=== PATIENT | female | born 1995 | race American Indian/Alaskan Native ===

== ENCOUNTER 2019-12-11 12:27 | Outpatient (CLI) | payer MEDICAID ==
[2019-12-11 13:38] VITALS: BP 106/66
[2019-12-11] MEDS ORDERED: LACTATED RINGERS 1,000 ML IV SCH (14:00)
== END 2019-12-11 15:15 | disposition home or self-care (01) ==
LOC: APU 12:27 → TRG 12:27
PROVIDERS: ATTEND Obstetrics & Gynecology
DX: O13.3 Gestational [pregnancy-induced] hypertension without significant proteinuria, third trimester (principal); Z3A.34 34 weeks gestation of pregnancy
CPT/HCPCS: 59025; 76815; 76819

== ENCOUNTER 2020-01-13 20:53 | Inpatient (IN) | payer MEDICAID ==
[2020-01-13] MEDS ORDERED: ePHEDrine SULFATE 50 MG/1 ML INJ IV PRN (20:57)
[2020-01-13] MEDS ORDERED: fentaNYL 100 MCG/2 ML INJ IV PRN (20:57)
[2020-01-13] MEDS ORDERED: LIDOCAINE (2%) 20 MG/1 ML VIAL 20 ML MDV INFILTRATI ONE (20:57)
[2020-01-13] MEDS ORDERED: AMPICILLIN/NS 2 GM/100 ML 2 GM/100 ML BAG IV ONE (20:57)
[2020-01-13] MEDS ORDERED: TERBUTALINE 1 MG/1 ML INJ SUB-Q PRN (20:57)
[2020-01-13] MEDS ORDERED: MINERAL OIL 30 ML ORAL LIQD PO PRN (20:57)
[2020-01-13] MEDS ORDERED: BUTORPHANOL 2 MG/1 ML INJ IV PRN (20:57)
[2020-01-13] MEDS ORDERED: OXYTOCIN DRIP 30 UNITS/500 ML BAG IV SCH (21:00)
--- NOTE | 2020-01-13 21:06 | History and Physical Report ---
History of Present Illness Date of examination: 01/13/20 Date of admission: 01/13/20 20:54 Chief complaint: Induction of labor secondary to cholestasis History of present illness: 24 yo, @ 39.0 wks, initiated care with [facility] [employer] at 21 wks gestation. Her has been complicated by late entry to [facility], cholestasis, +GBS status, abnormal PAP,severe anemia and LGA (93%tile). Pt presents to [facility] for scheduled IOL secondary to cholestasis. She reports positive FM. Denies any VB or LOF. Labs: A+, antibody negative; RPR negative; rubella immune; HBsAg negative; HIV negative; GC/Chlaymdia/Trich negative; Quad screen negative; 1 hr gtt - 68; GBS positive; Hgb A1c - 5.5%; uric acid - 3.8; bile acids - 12.3; AST - 22IU/L; ALT - 12IU/L Past History Past Medical History: other (Anemia) [employer]OMOTIONAL DEMONSTRATOR History: abnormal PAP smear (LGSIL) Social history: single, full code. denies: smoking, alcohol abuse, prescription drug abuse, IV drug use - Obstetrical History Expected Date of Delivery: 01/20/20 Actual Gestation: 39 Week(s) 0 Day(s) : 2 Para: 0 Hx # Term Pregnancies: 0 Number of Pregnancies: 0 Spontaneous Abortions: 1 Induced : 0 Number of Living Children: 0 Medications and Allergies Allergies Allergy/AdvReac Type Severity Reaction Status Date / Time No Known Allergies Allergy Unverified 12/11/19 13:34 Home Medications Medication Instructions Recorded Confirmed Last Taken Type Vit No.129/Iron/Folic 01/13/20 Unknown History [ One Daily Tablet] Active Meds: Active Medications Butorphanol Tartrate (Stadol) 2 mg IV Q2H PRN PRN Reason: Pain , Severe (7-10) Ephedrine Sulfate (Ephedrine Sulfate) 10 mg IV Q2M PRN PRN Reason: Hypotension Fentanyl (Sublimaze) 100 mcg IV Q2H PRN PRN Reason: Pain,Severe (7-10) LABOR PAIN Lactated Ringer's (Lactated Ringers) 1,000 mls @ 125 mls/hr IV DIRECT DAMASO Oxytocin/Sodium Chloride (Pitocin/Ns 30 Unit/500ml) 30 units in 500 mls @ 40 mls/hr IV TITR DAMASO; Protocol Ampicillin Sodium (Ampicillin/Ns 2 Gm/100 Ml) 2 gm in 100 mls @ 100 mls/hr IV ONCE ONE; Protocol Stop: 01/13/20 21:56 Ampicillin Sodium (Ampicillin/Ns 1 Gm/50 Ml) 1 gm in 50 mls @ 100 mls/hr IV Q4HR DAMASO; Protocol Lidocaine (Xylocaine 2%) 20 ml INFILTRATI ONCE ONE Stop: 01/13/20 20:58 Mineral Oil (Mineral Oil) 30 ml PO QHS PRN PRN Reason: Constipation Terbutaline Sulfate (Brethine) 0.25 mg SUB-Q ONCE PRN PRN Reason: Hyperstimulation/Hypertonicity Review of Systems All systems: negative - Physical Exam Breasts: Positive: normal Cardiovascular: Regular rate Lungs: Positive: Normal air movement Abdomen: Positive: other Vagina: Positive: normal moisture Uterus: Positive: enlarged (S>D) Extremities: Positive: edema - Obstetrical FHR: category 1 Uterine Contraction Monitor Mode: External Cervical Dilatation: 0.5 (difficult to completely assess d/t pt clamping legs) Cervical Effacement Percentage: 50 station: -3 Uterine Contraction Pattern: Irregular Uterine Tone Measurement Phase: Resting Uterine Contraction Intensity: Mild Results All other labs normal. Assessment and Plan - Patient Problems (1) Encounter for induction of labor Current Visit: Yes Status: Acute Plan to address problem: Admit to L & D Cervidil x 12 hrs as tolerated Pain meds as desired per orders Anticipate (2) Cholestasis during in third trimester Current Visit: Yes Status: Acute (3) Maternal obesity affecting , antepartum Current Visit: Yes Status: Acute (4) Positive GBS test Current Visit: Yes Status: Acute Plan to address problem: Initiate GBS protocol
[2020-01-13] MEDS ORDERED: DINOPROSTONE 10 MG VAG SUPP VG ONE (22:21)
[2020-01-13 22:34] LABS: Hematocrit 37.8 % (30.3-42.9); Hemoglobin 12.5 gm/dl (10.1-14.3); Mean Corpuscular HGB Conc 33 % (30-34); Mean Corpuscular Volume 83 fl (79-97); Platelet Count 179 K/mm3 (140-440); Red Blood Count 4.58 M/mm3 (3.65-5.03)
[2020-01-13 22:37] LABS: Red Cell Distribution Width 21.2 % (13.2-15.2)
[2020-01-13] MEDS: LACTATED RINGERS 1,000 ML IV SCH (23:08)
[2020-01-14] MEDS ORDERED: AMPICILLIN/NS 1 GM/50 ML 1 GM/50 ML BAG IV SCH ×2 (01:00→06:45)
[2020-01-14] MEDS ORDERED: AMPICILLIN/NS 2 GM/100 ML 2 GM/100 ML BAG IV ONE (02:45)
[2020-01-14] MEDS: LACTATED RINGERS 1,000 ML IV SCH ×2 (02:53→21:00)
[2020-01-14] MEDS ORDERED: miSOPROStol 25 MCG TAB ONE (10:35)
--- NOTE | 2020-01-14 10:52 | Progress Note ---
Assessment and Plan A: IUP @ 391/7 Weeks Category I Tracing Cholestasis of Pruritic Rash GBS Positive P: Cervidil Induction Vistaril 50mg IM q 6 hours PRN Hold GBS Prophylaxis until active labor Subjective - Subjective Date of service: 01/14/20 Patient reports: movement normal, other (itching rash) Objective - Vital Signs Vital Signs: Vital Signs - 12hr 01/14/20 01/14/20 01/14/20 01:45 04:18 05:45 Temperature 98.3 F 98.5 F Pulse Rate 86 Blood Pressure 116/61 - Exam Breasts: normal Cardiovascular: Regular rate Lungs: Clear to auscultation, Normal air movement Abdomen: Present: normal appearance, soft Uterus: Present: normal, firm, fundal height above umbilicus FHR: category 1 Uterine Contraction Monitor Mode: External Cervical Dilatation: 0.5 (Vtx; Intact) Cervical Effacement Percentage: 10 station: -4 Uterine Contraction Pattern: Absent Uterine Tone Measurement Phase: Resting Extremities: other (Red raised rash over legs, thighs, arms, and back) - Labs Labs: Abnormal Labs 01/13/20 22:00 MCH 27 L RDW 21.2 H Laboratory Results - last 24 hr 01/13/20 01/13/20 22:00 22:00 WBC 7.3 RBC 4.58 Hgb 12.5 Hct 37.8 MCV 83 MCH 27 L MCHC 33 RDW 21.2 H Plt Count 179 Blood Type A POSITIVE Antibody Screen Negative
[2020-01-14] MEDS ORDERED: DINOPROSTONE 10 MG VAG SUPP VG ONE (11:00)
[2020-01-14] MEDS ORDERED: hydrOXYzine HCL 100 MG/2 ML INJ IM PRN (11:00)
--- NOTE | 2020-01-14 21:51 | Progress Note ---
Assessment and Plan A: IUP @ 391/7 Weeks Category I Tracing Cholestasis of GBS Positive P: Pull Cervidil at 2300 Start Low Dose Pitocin Hold GBS Prophylaxis until active labor Subjective - Subjective Date of service: 01/14/20 Patient reports: movement normal, contractions (very mild) Objective - Vital Signs Vital Signs: Vital Signs - 12hr 01/14/20 01/14/20 01/14/20 12:21 12:22 12:26 Temperature 97.7 F Pulse Rate 86 81 95 H Respiratory 20 Rate Blood Pressure 109/59 O2 Sat by Pulse 95 94 95 Oximetry 01/14/20 01/14/20 01/14/20 12:31 12:36 12:37 Temperature Pulse Rate 89 83 84 Respiratory Rate Blood Pressure O2 Sat by Pulse 96 95 94 Oximetry 01/14/20 01/14/20 01/14/20 12:41 12:44 12:46 Temperature Pulse Rate 80 83 81 Respiratory Rate Blood Pressure O2 Sat by Pulse 96 94 97 Oximetry 01/14/20 01/14/20 01/14/20 12:50 12:51 12:56 Temperature Pulse Rate 78 83 88 Respiratory Rate Blood Pressure O2 Sat by Pulse 94 95 97 Oximetry 01/14/20 01/14/20 01/14/20 13:01 13:03 13:06 Temperature Pulse Rate 84 81 86 Respiratory Rate Blood Pressure O2 Sat by Pulse 99 94 96 Oximetry 01/14/20 01/14/20 01/14/20 13:21 13:24 13:26 Temperature Pulse Rate 72 84 78 Respiratory Rate Blood Pressure 113/59 O2 Sat by Pulse 97 96 Oximetry 01/14/20 01/14/20 01/14/20 13:31 13:36 13:41 Temperature Pulse Rate 81 80 86 Respiratory Rate Blood Pressure O2 Sat by Pulse 96 97 100 Oximetry 01/14/20 01/14/20 01/14/20 13:45 13:49 13:54 Temperature Pulse Rate 81 112 H 32 L Respiratory Rate Blood Pressure O2 Sat by Pulse 94 76 L 79 L Oximetry 01/14/20 01/14/20 01/14/20 13:57 13:59 14:04 Temperature Pulse Rate 83 77 Respiratory Rate Blood Pressure O2 Sat by Pulse 79 L 81 L 80 L Oximetry 01/14/20 01/14/20 01/14/20 14:07 14:09 14:13 Temperature Pulse Rate 43 L Respiratory Rate Blood Pressure O2 Sat by Pulse 81 L 80 L 78 L Oximetry 01/14/20 01/14/20 01/14/20 14:18 14:21 14:23 Temperature Pulse Rate 113 H 116 H Respiratory Rate Blood Pressure O2 Sat by Pulse 73 L 89 84 Oximetry 01/14/20 01/14/20 01/14/20 14:25 14:26 14:31 Temperature Pulse Rate 94 H 42 L 82 Respiratory Rate Blood Pressure 110/65 O2 Sat by Pulse 76 L 96 Oximetry 01/14/20 01/14/20 01/14/20 14:36 14:41 14:46 Temperature Pulse Rate 86 95 H 81 Respiratory Rate Blood Pressure O2 Sat by Pulse 97 97 97 Oximetry 01/14/20 01/14/20 01/14/20 14:51 14:56 15:01 Temperature Pulse Rate 84 93 H 95 H Respiratory Rate Blood Pressure O2 Sat by Pulse 98 98 97 Oximetry 01/14/20 01/14/20 01/14/20 15:06 15:11 15:16 Temperature Pulse Rate 94 H 90 84 Respiratory Rate Blood Pressure O2 Sat by Pulse 96 97 98 Oximetry 01/14/20 01/14/20 01/14/20 15:21 15:25 15:26 Temperature Pulse Rate 82 85 86 Respiratory Rate Blood Pressure 104/51 O2 Sat by Pulse 98 97 Oximetry 01/14/20 01/14/20 01/14/20 15:31 15:36 15:41 Temperature Pulse Rate 91 H 82 90 Respiratory Rate Blood Pressure O2 Sat by Pulse 96 97 96 Oximetry 01/14/20 01/14/20 01/14/20 15:46 15:48 15:51 Temperature Pulse Rate 86 93 H Respiratory Rate Blood Pressure O2 Sat by Pulse 98 76 L 96 Oximetry 01/14/20 01/14/20 01/14/20 15:57 16:02 16:07 Temperature Pulse Rate 98 H Respiratory Rate Blood Pressure O2 Sat by Pulse 91 76 L 78 L Oximetry 01/14/20 01/14/20 01/14/20 16:20 16:26 16:31 Temperature Pulse Rate 43 L Respiratory Rate Blood Pressure O2 Sat by Pulse 90 75 L 82 L Oximetry 01/14/20 01/14/20 01/14/20 16:36 16:44 16:50 Temperature Pulse Rate 153 H 67 Respiratory Rate Blood Pressure O2 Sat by Pulse 80 L 90 95 Oximetry 01/14/20 01/14/20 01/14/20 16:55 17:01 17:02 Temperature Pulse Rate 93 H 77 111 H Respiratory Rate Blood Pressure O2 Sat by Pulse 80 L 94 93 Oximetry 01/14/20 01/14/20 01/14/20 17:06 17:08 17:11 Temperature Pulse Rate 75 65 Respiratory Rate Blood Pressure O2 Sat by Pulse 86 90 94 Oximetry 01/14/20 01/14/20 01/14/20 17:13 17:16 17:32 Temperature Pulse Rate 69 29 L 124 H Respiratory Rate Blood Pressure O2 Sat by Pulse 97 66 L 85 Oximetry 01/14/20 01/14/20 01/14/20 19:13 19:24 20:25 Temperature Pulse Rate 100 H 94 H 88 Respiratory Rate Blood Pressure 140/56 115/57 107/55 O2 Sat by Pulse Oximetry 01/14/20 01/14/20 20:34 21:24 Temperature 98.1 F Pulse Rate 96 H Respiratory 18 Rate Blood Pressure 120/56 O2 Sat by Pulse Oximetry - Exam Breasts: normal Cardiovascular: Regular rate Lungs: Clear to auscultation, Normal air movement Abdomen: Present: normal appearance, soft, normal bowel sounds Uterus: Present: normal, firm, fundal height above umbilicus FHR: category 1 Uterine Contraction Monitor Mode: External Cervical Dilatation: 1 (Intact) Cervical Effacement Percentage: 20 station: -3 Uterine Contraction Pattern: Regular Uterine Tone Measurement Phase: Resting Uterine Contraction Intensity: Mild - Labs Labs: Abnormal Labs 01/13/20 22:00 MCH 27 L RDW 21.2 H Laboratory Results - last 24 hr 01/13/20 01/13/20 22:00 22:00 WBC 7.3 RBC 4.58 Hgb 12.5 Hct 37.8 MCV 83 MCH 27 L MCHC 33 RDW 21.2 H Plt Count 179 Blood Type A POSITIVE Antibody Screen Negative
[2020-01-15] MEDS: LACTATED RINGERS 1,000 ML IV SCH (05:50)
[2020-01-15 09:45] VITALS: BP 104/53
--- NOTE | 2020-01-15 09:45 | Progress Note ---
Assessment and Plan A: IUP@39.1 wks with cholestasis GBS pos p: Continue monitoring on Pitocin Start GBS prophylaxis when active labor Expectant Mtg Subjective - Subjective Date of service: 01/15/20 Principal diagnosis: IUP@ 39.1 wks with cholestasis Patient reports: movement normal, contractions (very mild) Objective - Vital Signs Vital Signs: Vital Signs - 12hr 01/15/20 01/15/20 01/15/20 00:00 01:17 04:48 Temperature 98.2 F 98.1 F Pulse Rate 85 Respiratory 18 17 Rate Blood Pressure 119/59 01/15/20 07:58 Temperature 98.1 F Pulse Rate Respiratory 20 Rate Blood Pressure - Exam Breasts: normal Abdomen: Present: normal appearance, soft Vulva: both: normal Uterus: Present: normal, other (gravid) FHR: auscultation normal Uterine Contraction Monitor Mode: External Cervical Dilatation: 1 Cervical Effacement Percentage: 30 station: -3 Uterine Contraction Frequency (min): irreg Uterine Contraction Pattern: Irregular Uterine Tone Measurement Phase: Resting Uterine Contraction Intensity: Mild Extremities: normal - Labs Labs: Abnormal Labs 01/13/20 22:00 MCH 27 L RDW 21.2 H
--- NOTE | 2020-01-15 10:06 | Progress Note ---
Subjective - Subjective Date of service: 01/15/20 Principal diagnosis: IUP@ 39.1 wks with cholestasis Interval history: IOL for cholestasis although labs are WNL and patient does not meet criteria for cholestasis declines cytotec Tachysystole with cervidil suspect LGA plan for BPP/PAULA/EFW and repeat labs If testing is WNL may consider sending patient home vs section given inability to ripen cervix and patient's declination of cytotoc. Pavel Molina MD Patient reports: movement normal, contractions (very mild) Objective - Vital Signs Vital Signs: Vital Signs - 12hr 01/15/20 01/15/20 01/15/20 00:00 01:17 04:48 Temperature 98.2 F 98.1 F Pulse Rate 85 Respiratory 18 17 Rate Blood Pressure 119/59 01/15/20 01/15/20 07:58 09:44 Temperature 98.1 F Pulse Rate 77 Respiratory 20 Rate Blood Pressure 104/53 - Labs Labs: Abnormal Labs 01/13/20 22:00 MCH 27 L RDW 21.2 H
--- NOTE | 2020-01-15 14:25 | Ultrasound Report ---
ULTRASOUND BIOPHYSICAL PROFILE INDICATION: Hx of cholestasis. COMPARISON: 12/11/2019 FINDINGS: breathing movement = 2 Gross body movement = 2 tone = 2 Qualitative amniotic fluid volume = 2 Total biophysical score = /8 heart rate is 146 beats per minute. IMPRESSION: biophysical profile = 10/10 OBSTETRIC ULTRASOUND INDICATION: Hx of cholestasis COMPARISON: 12/11/2019 TECHNIQUE: Transabdominal imaging was performed. FINDINGS: Single viable intrauterine is identified. lie: Cephalic. Heart rate: 149 bpm. measurements are as follows: Biparietal diameter 9.8 cm, 39 weeks 6 days Head circumference 35.3 cm, 41 weeks 1 day Abdominal circumference 32.6 cm, 41 weeks 4 days Femur length 7.5 cm, 38 weeks 2 days Sonographic gestational age is 40 weeks, 2 days. Amniotic fluid index is 9.1 cm, within normal limits. No placental abnormalities are seen. CONCLUSION: Single viable intrauterine currently in cephalic position. Amniotic fluid index is within n ormal limits. Signer Name: Eliezer Arnett MD Signed: 01/15/2020 2:20 PM Workstation Name: [email or web address]
[2020-01-15 14:38] LABS: Hematocrit 37.2 % (30.3-42.9); Hemoglobin 12.4 gm/dl (10.1-14.3); Mean Corpuscular HGB Conc 33 % (30-34); Mean Corpuscular Volume 82 fl (79-97); Platelet Count 169 K/mm3 (140-440); Red Blood Count 4.55 M/mm3 (3.65-5.03)
[2020-01-15 14:47] LABS: Red Cell Distribution Width 20.7 % (13.2-15.2)
[2020-01-15 14:57] LABS: Alanine Aminotransferase 14 units/L (7-56); Albumin 3.6 g/dL (3.9-5); Blood Urea Nitrogen 4 mg/dL (7-17); Calcium 9.4 mg/dL (8.4-10.2); Hemolysis Index 2
[2020-01-15 15:04] LABS: BUN/Creatinine Ratio 10
--- NOTE | 2020-01-15 16:36 | Event Note ---
Date: 01/15/20 Patient comfortable LAbs WNL Bile acids are a send out: awaiting on results 2-3 days. BPP/PAULA 10/10 I reviewed the options for delivery including continued cervical ripening and d/c to home. Pt ok to go home with labor and cholestasis precautions I explained she should fup with [facility] on Sunday01/19/2020 I explained that she needs another date for IOL between 40-41 weeks PRIOR to discharge. I explained that pt should return to l&D for LOF, VB, decreased FM or any untoward symptom. Maternal/ well being reassuring at discharge. Pavel Molina MD
--- NOTE | 2020-01-15 16:46 | Discharge Summary ---
Providers - Providers Date of Admission: 01/13/20 20:54 Date of discharge: 01/15/20 Attending physician: LILI DODGE Primary care physician: LILI DODGE Hospitalization Reason for admission: other (IOL For cholestasis) Discharge diagnosis: other (39+2/7 weeks, reassuring testing, remote from delivery. ) Disposition: DC-30 STILL A PATIENT Plan - Provider Discharge Summary Activity: routine Diet: routine Instructions: routine Additional instructions: [] Smoking cessation referral if applicable(refer to patient education folder for contact #) [] Refer to [facility]'s [facility] Booklet Call your doctor immediately for: * Fever > 100.5 * Heavy vaginal bleeding ( >1 pad per hour) * Severe persistent headache * Shortness of breath * Reddened, hot, painful area to leg or breast * Drainage or odor from incision. * Keep incision clean and dry at all times and follow doctor's instructions regarding bathing/showering - Follow up plan Follow up: LILI DODGE MD [Primary Care Provider] - 3 Days
== END 2020-01-15 17:40 | disposition home or self-care (01) | DRG 781 ==
LOC: TRG 20:53 → LD 20:54
PROVIDERS: ADMIT Obstetrics & Gynecology; ATTEND Obstetrics & Gynecology
DX: O26.613 Liver and biliary tract disorders in pregnancy, third trimester (principal); K83.1 Obstruction of bile duct; O99.820 Streptococcus B carrier state complicating pregnancy; B95.1 Streptococcus, group B, as the cause of diseases classified elsewhere; Z20.828 Contact with and (suspected) exposure to other viral communicable diseases; O99.213 Obesity complicating pregnancy, third trimester; Z3A.39 39 weeks gestation of pregnancy
CPT/HCPCS: 36415; 76816; 76819; 80053; 82239; 85027; 86850; 86900; 86901; G0378; J0290; J2590; J7120; U0003

== ENCOUNTER 2020-02-04 19:06 | Inpatient (IN) | payer MEDICAID, OTHER ==
[2020-02-05] MEDS ORDERED: MINERAL OIL 30 ML ORAL LIQD PO PRN (00:42)
[2020-02-05] MEDS ORDERED: ePHEDrine SULFATE 50 MG/1 ML INJ IV PRN (00:42)
[2020-02-05] MEDS ORDERED: LIDOCAINE (2%) 20 MG/1 ML VIAL 20 ML MDV INFILTRATI ONE (00:42)
[2020-02-05] MEDS ORDERED: TERBUTALINE 1 MG/1 ML INJ SUB-Q PRN (00:42)
[2020-02-05] MEDS ORDERED: AMPICILLIN/NS 2 GM/100 ML 2 GM/100 ML BAG IV ONE (00:46)
[2020-02-05] MEDS ORDERED: OXYTOCIN DRIP 30 UNITS/500 ML BAG IV SCH ×2 (01:00)
[2020-02-05 01:21] LABS: Hematocrit 36.1 % (30.3-42.9); Hemoglobin 12.3 gm/dl (10.1-14.3); Mean Corpuscular HGB Conc 34 % (30-34); Mean Corpuscular Volume 81 fl (79-97); Platelet Count 159 K/mm3 (140-440); Red Blood Count 4.46 M/mm3 (3.65-5.03); Red Cell Distribution Width 18.2 % (13.2-15.2)
[2020-02-05] MEDS ORDERED: AMPICILLIN/NS 1 GM/50 ML 1 GM/50 ML BAG IV SCH (02:00)
--- NOTE | 2020-02-05 04:33 | Ultrasound Report ---
Limited OB Ultrasound Biophysical profile HISTORY: Postdates. TECHNIQUE: Grayscale and color imaging performed. COMPARISON: OB ultrasound from 01/15/2020 FINDINGS: There is a single viable intrauterine gestation with cephalic presentation and heart rate o f 157 bpm. Cervical length is 4.7 cm in the placenta is positioned anteriorly. PAULA is 16 cm. Overall EGA by ultrasound is 39 weeks and 5 days with delivery date of 02/07/2020. Estimated weight is 4 174 g. On biophysical profile, the fetus received a score of 2 out of 2 for breathing, movement, posture/ton e, and PAULA. Total score was 8 out of 8. IMPRESSION: 1. Single viable intrauterine gestation as above. 2. Normal BPP. Signer Name: Mynor Abarca MD Signed: 02/05/2020 4:29 AM Workstation Name: [id number]
[2020-02-05] MEDS: LACTATED RINGERS 1,000 ML IV SCH ×3 (05:37→22:13)
--- NOTE | 2020-02-05 11:48 | Progress Note ---
Assessment and Plan A: IUP@ 40 2/7 wks postdates Macrosomia Pos BV Severe Anemia P: Continue monitoring Cervidil induction GBS prophylaxis Pain med/Epidural prn Anticipatory care - Patient Problems (1) Severe anemia Current Visit: Yes Status: Acute (2) Post-dates Current Visit: Yes Status: Acute Subjective - Subjective Date of service: 02/05/20 Principal diagnosis: 40 2/7 wks post dates Patient reports: movement normal, contractions Objective - Vital Signs Vital Signs: Vital Signs - 12hr 02/05/20 02/05/20 02/05/20 00:00 03:20 09:52 Temperature 97.8 F 97.8 F Pulse Rate 77 78 Respiratory 20 Rate Blood Pressure 108/57 110/61 Blood Pressure [Left] O2 Sat by Pulse Oximetry 02/05/20 09:53 Temperature 97.8 F Pulse Rate 78 Respiratory 16 Rate Blood Pressure Blood Pressure 110/61 [Left] O2 Sat by Pulse 100 Oximetry - Exam Breasts: normal Abdomen: Present: normal appearance, soft, normal bowel sounds, other (gravid) Vulva: both: normal Uterus: Present: normal, other (gravid) FHR: auscultation normal, category 1 Uterine Contraction Monitor Mode: External Cervical Dilatation: 0 Cervical Effacement Percentage: 10 station: -3 Uterine Contraction Pattern: Irregular Uterine Tone Measurement Phase: Resting Uterine Contraction Intensity: Mild Extremities: normal - Labs Labs: Abnormal Labs 02/05/20 00:31 RDW 18.2 H Laboratory Results - last 24 hr 02/05/20 02/05/20 02/05/20 00:31 00:31 00:31 WBC 6.9 RBC 4.46 Hgb 12.3 Hct 36.1 MCV 81 MCH 28 MCHC 34 RDW 18.2 H Plt Count 159 Syphilis IgG Antibody Nonreactive Blood Type A POSITIVE Antibody Screen Negative
[2020-02-05] MEDS ORDERED: DINOPROSTONE 10 MG VAG SUPP VG ONE (11:49)
--- NOTE | 2020-02-05 14:25 | History and Physical Report ---
History of Present Illness Date of examination: 02/05/20 Date of admission: 02/05/20 00:43 Chief complaint: "I was told to come to the hospital" History of present illness: 24 y/o Presented to [facility] L&D for an IOL r/t postdates. She initiated her pnc at [address] [facility] dietitian chief [place] office. Pt's preg has been complicated by a hx of abnormal pap LGSIL, pos GBS, anemia, dilated bowel, and Macrosomia. She was admitted to [facility] for an IOL on 01/13/20 r/t "cholestasis". However, pt was sent home by because pt's lab values did not reveal cholestasis. Pt was seen on 01/26/20 by SCOTT and baby was weighing in at 10 lbs 3 oz. Pt has been non complaint with pnc and reluctant to follow Dr's orders. She started her care late and has missed several f/u appoints. Pt has been adamant against an IOL and only wants a "natural delivery". She was last seen in the office on 01/21/20 and just returned on 02/04/20 @ 42 1/7 wks. After consulting with the POC, policy writer sales was advised to speak with the pt re the need for a c/s based on her postdates status, anemia, and her baby's EFW of 10 lbs 4 oz on 01/26/20 per SCOTT. Pt was notified of risk with continued accelerated biometry ie. protracted labor, operative vag del, c/s, pp hemorrhage, uterine rupture, shoulder dystocia, obesity, impaired glucose tolerance and mec aspiration. However, she refused a c/s, but agreed to have cervidil placed today. She was admitted to L&D for a cervidil induction. Past History - Obstetrical History : 2 Medications and Allergies Allergies Allergy/AdvReac Type Severity Reaction Status Date / Time No Known Allergies Allergy Unverified 12/11/19 13:34 Home Medications Medication Instructions Recorded Confirmed Last Taken Type Vit No.129/Iron/Folic 1 tab PO DAILY 01/13/20 02/05/20 02/05/20 History [ One Daily Tablet] 1 Active Meds: Active Medications Ephedrine Sulfate (Ephedrine Sulfate) 10 mg IV Q2M PRN PRN Reason: Hypotension Oxytocin/Sodium Chloride (Pitocin/Ns 30 Unit/500ml) 30 units in 500 mls @ 2 mls/hr IV TITR DAMASO; Protocol Lactated Ringer's (Lactated Ringers) 1,000 mls @ 125 mls/hr IV DIRECT DAMASO Last Admin: 02/05/20 05:37 Dose: 125 mls/hr Documented by: Oxytocin/Sodium Chloride (Pitocin/Ns 30 Unit/500ml) 30 units in 500 mls @ 40 mls/hr IV TITR DAMASO; Protocol Ampicillin Sodium (Ampicillin/Ns 1 Gm/50 Ml) 1 gm in 50 mls @ 100 mls/hr IV Q4HR DAMASO; Protocol Last Admin: 02/05/20 09:59 Dose: 100 mls/hr Documented by: Mineral Oil (Mineral Oil) 30 ml PO QHS PRN PRN Reason: Constipation Multivitamins/Iron/Calcium ( Vitamin) 1 each PO DAILY DAMASO Terbutaline Sulfate (Brethine) 0.25 mg SUB-Q ONCE PRN PRN Reason: Hyperstimulation/Hypertonicity - Vital Signs Vital signs: Vital Signs Temp Pulse Resp BP 97.8 F 77 20 108/57 02/05/20 00:00 02/05/20 00:00 02/05/20 00:00 02/05/20 00:00 Temp Pulse Resp BP Pulse Ox 97.8 F 78 16 110/61 100 02/05/20 09:53 02/05/20 09:53 02/05/20 09:53 02/05/20 09:53 02/05/20 09:53 Results Result Diagrams: 02/05/20 00:31 Abnormal lab results 02/05/20 Range/Units 00:31 RDW 18.2 H (13.2-15.2) % All other labs normal. Assessment and Plan A: IUP@ 42 2/7 wks postdates Anemia, +GBS, macrosomia Abnormal pap LGSIL, Dilated bowel (mild) P: Admit to L&D for cervidil induction GBS prophylaxis Notify HEATHER team of postdates, Macrosomia, and dilated bowel Pain med/Epidural prn Continuous monitoring Expectant mtg - Patient Problems (1) Severe anemia Current Visit: Yes Status: Acute (2) Post-dates Current Visit: Yes Status: Acute
[2020-02-06] MEDS ORDERED: DINOPROSTONE 10 MG VAG SUPP VG ONE (02:30)
[2020-02-06] MEDS: LACTATED RINGERS 1,000 ML IV SCH (09:00)
[2020-02-06] MEDS: PRENATAL VIT27-FE FUMARATE-FOLIC ACID VIT TAB PO SCH (09:01)
[2020-02-06] MEDS ORDERED: [UNRECOGNIZED DRUG - REMARK] PO SCH (10:00)
--- NOTE | 2020-02-06 11:00 | Progress Note ---
Assessment and Plan - Patient Problems (1) Encounter for induction of labor Current Visit: No Status: Acute Plan to address problem: Continue routine labor orders Second Cervidil in place, remove at 1500 Pain meds as tolerated (2) Positive GBS test Current Visit: No Status: Acute (3) Macrosomia affecting management of mother in third trimester Current Visit: Yes Status: Acute Subjective - Subjective Date of service: 02/06/20 Principal diagnosis: IOL; postdate ; macrosomia Interval history: See admission H & P and OB progress notes Patient reports: movement normal, contractions Objective - Vital Signs Vital Signs: Vital Signs - 12hr 02/06/20 02/06/20 02/06/20 03:04 04:11 04:13 Temperature 97.9 F 97.6 F Pulse Rate 74 75 Respiratory 16 Rate Blood Pressure 121/67 Blood Pressure 121/67 [Left] 02/06/20 08:56 Temperature 97.7 F Pulse Rate 78 Respiratory 18 Rate Blood Pressure 117/57 Blood Pressure [Left] - Exam Breasts: deferred Cardiovascular: Regular rate Lungs: Normal air movement Abdomen: Present: other (gravid) Uterus: Present: other (S>D) FHR: category 1 Uterine Contraction Pattern: Irregular Uterine Tone Measurement Phase: Resting Uterine Contraction Intensity: Mild Extremities: edema - Labs Labs: Abnormal Labs 02/05/20 00:31 RDW 18.2 H
--- NOTE | 2020-02-06 16:32 | Progress Note ---
Assessment and Plan - Patient Problems (1) Encounter for induction of labor Current Visit: No Status: Acute Plan to address problem: Continue routine labor orders Cervidil removed around 1510 May shower and eat (2) Positive GBS test Current Visit: No Status: Acute Plan to address problem: Initiate GBS protocol once active labor occurs (3) Macrosomia affecting management of mother in third trimester Current Visit: Yes Status: Acute Subjective - Subjective Date of service: 02/06/20 Principal diagnosis: IOL; postdate ; macrosomia Interval history: See admission H & P and OB progress notes Patient reports: movement normal, contractions, no new complaints, no loss of fluid, no vaginal bleeding Objective - Vital Signs Vital Signs: Vital Signs - 12hr 02/06/20 02/06/20 02/06/20 08:56 13:42 13:43 Temperature 97.7 F 98.4 F Pulse Rate 78 80 81 Respiratory 18 Rate Blood Pressure 117/57 128/73 Blood Pressure 128/73 [Left] 02/06/20 02/06/20 13:54 15:42 Temperature Pulse Rate 76 77 Respiratory Rate Blood Pressure 127/73 119/62 Blood Pressure [Left] - Exam Breasts: deferred, mass Lungs: Normal air movement FHR: category 1 Uterine Contraction Monitor Mode: External Cervical Dilatation: 0.5 (per RN) Cervical Effacement Percentage: 40 (soft) station: -3 Uterine Contraction Frequency (min): 7-9 Uterine Contraction Pattern: Irregular Uterine Tone Measurement Phase: Resting Uterine Contraction Intensity: Mild - Labs Labs: Abnormal Labs 02/05/20 00:31 RDW 18.2 H Laboratory Results - last 24 hr 02/05/20 Unknown Coronavirus (PCR) Negative
--- NOTE | 2020-02-06 21:48 | Event Note ---
Date: 02/06/20 Assumed care of patient at 5:30 PM. Examined vulvar skin with bright lights. Small linear lesion noted right labia. Patient states this lesion stings and hurts; when questioned, she states she has had lesion and similar symptoms in this same area before. HSV culture and serology done. Discussed with patient possible etiologies: traumatic vs. herpes and associated risks. Informed Dr. Newton re: the above and he states he will perform section tomorrow morning. Patient states she is in agreement with plan to deliver by section.
[2020-02-07] MEDS: valACYclovir 500 MG TAB PO SCH ×2 (03:33→22:00)
[2020-02-07] MEDS ORDERED: BICITRA ORAL LIQD 30ML PO ONE (07:22)
[2020-02-07] MEDS ORDERED: FAMOTIDINE 20 MG/2 ML INJ IV NR (08:00)
[2020-02-07] MEDS ORDERED: METOCLOPRAMIDE 10 MG/2 ML INJ IV NR (08:00)
[2020-02-07] MEDS ORDERED: ceFAZolin/STERILE WATER 2 GM/20 ML SYRINGE IV NR (08:00)
--- NOTE | 2020-02-07 08:11 | Anesthesia Consultation ---
Anesthesia Consult and Med Hx Date of service: 02/07/20 - Airway Anesthetic Teeth Evaluation: Good ROM Head & Neck: Adequate Mental/Hyoid Distance: Adequate Mallampati Class: Class II Intubation Access Assessment: Probably Good - Pulmonary Exam CTA: Yes - Cardiac Exam Cardiac Exam: RRR - Pre-Operative Health Status ASA Pre-Surgery Classification: ASA3 Proposed Anesthetic Plan: Spinal - Pulmonary Hx Asthma: No - Cardiovascular System Hx Hypertension: No - Central Nervous System Hx Seizures: No Hx Psychiatric Problems: No - Endocrine Hx Renal Disease: No Hx Hypothyroidism: No Hx Hyperthyroidism: No - Hematic Hx Anemia: Yes Hx Sickle Cell Disease: No - Other Systems Hx Alcohol Use: No Hx Obesity: Yes
--- NOTE | 2020-02-07 08:11 | Anesthesia Day of Surgery ---
Anesthesia Day of Surgery - Day of Surgery Patient Examined: Yes Patient H&P Reviewed: Yes Patient is NPO: Yes
[2020-02-07] MEDS ORDERED: dexAMETHasone 20 MG/5 ML VIAL ONE ×2 (08:14→15:54)
[2020-02-07] MEDS ORDERED: KETOROLAC 30 MG/1 ML INJ ONE ×2 (08:14→15:54)
[2020-02-07] MEDS ORDERED: ONDANSETRON 4 MG/2 ML INJ ONE (08:14)
[2020-02-07] MEDS ORDERED: BUPIVACAINE/PF (0.5%) 5 MG/1 ML 30 ML VIAL INFILTRATI ONE ×2 (08:14→15:54)
[2020-02-07] MEDS ORDERED: ceFAZolin/STERILE WATER 2 GM/20 ML SYRINGE IV ONE (13:55)
[2020-02-07] MEDS ORDERED: ONDANSETRON 4 MG/2 ML INJ IV ONE (14:00)
[2020-02-07] MEDS ORDERED: LACTATED RINGERS 1,000 ML ONE (14:28)
[2020-02-07] MEDS ORDERED: PHENYLEPHRINE/NS 1,000 MCG/10 ML SYRINGE (OR USE) IV ONE (14:28)
[2020-02-07] MEDS ORDERED: OXYTOCIN 10 UNIT/1 ML INJ ONE (14:48)
--- NOTE | 2020-02-07 15:24 | Procedure Note ---
OB Delivery Note - Delivery Date of Delivery: 02/07/20 Surgeon: ERICK AMAYA JR Estimated blood loss: other (700cc) - Section Preop diagnosis: other (concern for herpetic lesions) Postop diagnosis: same section procedure: section, primary low transverse Disposition: PACU Complications: none Narrative: Indication: 24 y/o A1 at 44w5d c/b hx of abnormal pap LGSIL, pos GBS, anemia, dilated bowel, and macrosomia admitted for IOL, stopped 2/2 to concern for herpetic lesions noted on labia for primary c section Findings: Normal uterus, tubes and ovaries. Clear fluid with terminal meconium. Nuchal cord x 1 and body cord x 1. Liver female at 1444 20.5 inches 477 1 g Apgars 8/9 EBL 700 cc UOP 150 cc IVF 1700 cc Procedure: Patient was taken to the operating room prepped and draped in the usual sterile fashion. Pfannenstiel skin incision was made and carried down to the underlying fascia. Fascia was incised and the incision was distended bilaterally. Rectus fascia was dissected off the rectus muscle superiorly and inferiorly. Peritoneum was identified and entered. Peritoneal incision extended superiorly and inferiorly. The bladder was visualized. The bladder blade was placed. Uterine hysterotomy incision was made and extended b ilaterally. The baby was delivered in the typical vertex fashion. Baby was bulb suction at delivery. The cord was cut and clamped and handed off to the team after 1 minute of delayed cord clamping per patient request. The placenta was delivered spontaneously and given to patient per patient request. The uterus was exteriorized and cleared of all clots and debris. Uterine incision was closed with a 0 Vicryl in a running locked fashion. Good hemostasis was noted. The urine was noted to be clear. Uterus, tubes, and ovaries were returned to the abdominal cavity. Bilateral gutters were cleared and the abdomen and pelvis were irrigated. Good hemostasis noted. The rectus muscles was reapproximated with 2-0 Vicryl attention was directed towards the rectus fascia which was reapproximated with 0 PDS in a running fashion. The subcutaneous tissue was irrigated and reapproximated with 2-0 Vicryl in a running fashion. Skin was closed with a 4-0 Vicryl in a subcuticular fashion. The procedure was completed and the patient tolerated the procedure well. All instruments and lap counts were correct x2. - Infant A at 1 minute: 8 at 5 minutes: 9 Gender: Female
[2020-02-07] MEDS ORDERED: NALOXONE 0.4 MG/1 ML INJ IV PRN (15:28)
[2020-02-07] MEDS ORDERED: MORPHINE 4 MG/1 ML INJ IV PRN (15:28)
[2020-02-07] MEDS ORDERED: oxyCODONE /ACETAMINOPHEN 5-325MG TAB PO PRN (15:28)
[2020-02-07] MEDS ORDERED: HYDROCORTISONE 25 MG RECTAL SUPP PR PRN (15:28)
[2020-02-07] MEDS ORDERED: ONDANSETRON 4 MG/2 ML INJ IV PRN (15:28)
[2020-02-07] MEDS ORDERED: LANOLIN/ZINC/DIMETHICONE (LANSINOH) 7 GM TP PRN (15:28)
[2020-02-07] MEDS ORDERED: SIMETHICONE 80 MG CHEW TAB PO PRN (15:28)
[2020-02-07] MEDS ORDERED: WITCH HAZEL/ GLYCERIN PAD TP PRN (15:28)
[2020-02-07] MEDS ORDERED: MAGNESIUM HYDROXIDE (MOM) ORAL LIQD UDC PO PRN (15:28)
[2020-02-07] MEDS ORDERED: SENNOSIDES 8.6 MG TAB PO PRN (15:28)
[2020-02-07] MEDS ORDERED: PROMETHAZINE 25 MG RECT SUPP PR PRN (15:28)
[2020-02-07] MEDS ORDERED: OXYTOCIN DRIP 30 UNITS/500 ML BAG IV SCH (16:00)
--- NOTE | 2020-02-07 16:03 | Post Anesthesia Evaluation ---
- Post Anesthesia Evaluation Patient Participated: Yes Airway Patent: Yes Stable Respiratory Function: Yes Nausea/Vomiting: No Temp > 96.8F: Yes Pain Manageable: Yes Adequeate Hydration: Yes Anesthesia Complications: No Block Receding Appropriately: Yes
--- NOTE | 2020-02-07 16:03 | Progress Note ---
Regional Anesthesia Block - Regional Anesthesia Block Start Time: 15:55 Stop Time: 16:00 Performed By:: AGUSTÍN ABEL Procedure: U/S guided bilateral tap block performed for post-operative pain requested by Dr. Newton. H&P & labs reviewed. Procedure explained, questions answered, consent obtained. Patient in the supine position with ekg, blood pressure cuff and pulse ox on and working in PACU. Timeout performed immediately before start of procedure. Probe placed in the mid-axillary line and the external oblique, internal oblique, and transverse abdominus muscles identified. Skin was cleansed with 0.5% Chlorahexadine and allowed to dry. A 4" 20 G Navarrete echogenic needle was advanced in plane until the tip was in the fascial plane between the internal oblique and the transverse abdominus. After negative aspiration 35 ml/side of [30 ml 0.5% Bupivacaine], [50 mcg dexmedetomidine], [10 mg dexamethasone], and [40 ml sterile saline] was injected in 5 ml increments with negative aspiration in between. Patient tolerated procedure well. Carmelita JAMES
[2020-02-07] MEDS: KETOROLAC 30 MG/1 ML INJ IV SCH (22:00)
[2020-02-08] MEDS: KETOROLAC 30 MG/1 ML INJ IV SCH (04:00)
[2020-02-08 11:47] LABS: Hematocrit 31.2 % (30.3-42.9); Hemoglobin 10.3 gm/dl (10.1-14.3)
--- NOTE | 2020-02-08 12:41 | Progress Note ---
Assessment and Plan A: /postop day 1 S/P primary LTCS. Anemia. P: Supplement with iron. Encouraged ambulation. Continue current management. Subjective - Subjective Date of service: 02/08/20 Principal diagnosis: /postop day 1 S/P primary LTCS Patient reports: appetite normal, voiding normally, pain well controlled, flatus, ambulating normally, no dizzy ambulation, no nauseated : doing well Objective - Vital Signs Latest vital signs: Vital Signs Temp Pulse Resp BP BP Pulse Ox 02/08/20 08:45 97.8 F 67 18 117/58 02/08/20 05:54 97.7 F 58 L 18 101/60 98 02/08/20 02:35 97.4 F L 78 18 115/64 98 02/07/20 20:45 97.4 F L 71 18 112/64 98 02/07/20 17:48 97.5 F L 61 16 110/76 99 02/07/20 16:43 97.5 F L 02/07/20 16:30 64 16 108/66 94 02/07/20 16:15 71 12 118/61 95 02/07/20 16:00 65 14 109/59 96 02/07/20 15:45 62 14 110/53 93 02/07/20 15:40 68 12 105/54 94 02/07/20 15:35 97.5 F L 68 10 L 95/44 99 Intake and Output 02/07/20 02/08/20 02/08/20 23:59 07:59 15:59 Intake Total 400 720 480 Output Total 300 1050 Balance 100 -330 480 Intake: IV 300 Oral 480 Intake, Free Water 100 720 Output: Urine 300 1050 Indwelling Catheter 1050 Void 200 Other: Total, Intake Amount 120 Total, Output Amount 200 1050 # Voids Void 700 - Exam Cardiovascular: Present: Regular rate Lungs: Present: Clear to auscultation Abdomen: Present: normal appearance, soft, normal bowel sounds. Absent: distention, tenderness, guarding, rigidity Uterus: Present: normal, firm, fundal height below umbilicus. Absent: bogginess, tenderness Extremities: Present: normal, edema (mild pedal edema bilaterally). Absent: tenderness Incision: Present: normal, dry, dressed
[2020-02-08] MEDS: IBUPROFEN 800 MG TAB PO PRN (18:00)
[2020-02-08] MEDS: PRENATAL VIT27-FE FUMARATE-FOLIC ACID VIT TAB PO SCH (18:36)
[2020-02-09] MEDS: PRENATAL VIT27-FE FUMARATE-FOLIC ACID VIT TAB PO SCH (10:09)
[2020-02-09] MEDS: FERROUS SULFATE 325 MG TAB PO SCH (10:09)
--- NOTE | 2020-02-09 11:22 | Progress Note ---
Assessment and Plan A: POD #2 stable P: Follow Routine PostOp Orders D/C home in the AM RTO in One Week Subjective - Subjective Date of service: 02/09/20 Principal diagnosis: /postop day 1 S/P primary LTCS Patient reports: appetite normal, voiding normally, pain well controlled, flatus, ambulating normally : doing well Objective - Vital Signs Latest vital signs: Vital Signs Temp Pulse Resp BP BP Pulse Ox 02/09/20 07:37 97.8 F 66 20 117/68 96 02/09/20 01:45 98.2 F 85 20 104/56 95 02/08/20 16:05 98.2 F 72 20 105/64 02/08/20 13:00 98.7 F 75 20 115/76 Intake and Output 02/08/20 02/09/20 02/09/20 22:59 06:59 14:59 Intake Total 120 240 Output Total 500 Balance -380 240 Intake: Oral 120 240 Output: Urine 500 Void 500 Other: Total, Intake Amount 120 240 Total, Output Amount 500 # Voids Void 1 1 - Exam Breasts: Present: normal Cardiovascular: Present: Regular rate Lungs: Present: Clear to auscultation, Normal air movement Abdomen: Present: normal appearance, soft, normal bowel sounds Uterus: Present: normal, firm, fundal height below umbilicus Extremities: Present: normal Incision: Present: normal, dry, intact
--- NOTE | 2020-02-09 11:24 | Discharge Summary ---
Providers - Providers Date of Admission: 02/05/20 00:43 Date of discharge: 02/10/20 Attending physician: BEN HEBERT MD 02/08/20 04:55 Consult to Business Office Technician [CONS] Routine Reason For Exam: Primary care physician: BEN HEBERT MD Hospitalization Reason for admission: induction of labor Delivery: Procedure: primary low transverse Episiotomy: none Laceration: none Other procedures: none complications: none Discharge diagnosis: IUP at term delivered baby: female Condition at discharge: Good Disposition: DC-01 TO HOME OR SELFCARE Plan - Discharge Medications Prescriptions: Ibuprofen [Motrin 800 MG tab] 800 mg PO Q6H PRN #30 tablet PRN Reason: Pain, Mild (1-3) oxyCODONE /ACETAMINOPHEN [Percocet 5/325 mg] 1 tab PO Q6H PRN #30 tablet PRN Reason: Pain, Moderate (4-6) - Provider Discharge Summary Activity: routine, no sex for 6 weeks, no heavy lifting 4 weeks, no strenuous exercise Diet: routine Instructions: routine Additional instructions: [] Smoking cessation referral if applicable(refer to patient education folder for contact #) [] Refer to [facility] Booklet Call your doctor immediately for: * Fever > 100.5 * Heavy vaginal bleeding ( >1 pad per hour) * Severe persistent headache * Shortness of breath * Reddened, hot, painful area to leg or breast * Drainage or odor from incision. * Keep incision clean and dry at all times and follow doctor's instructions regarding bathing/showering - Follow up plan Follow up: ERICK AMAYA JR, MD [Staff Physician] - 7 Days
[2020-02-09] MEDS: IBUPROFEN 800 MG TAB PO PRN (17:37)
[2020-02-10] MEDS: IBUPROFEN 800 MG TAB PO PRN (10:19)
[2020-02-10] MEDS: FERROUS SULFATE 325 MG TAB PO SCH (10:19)
[2020-02-10] MEDS: PRENATAL VIT27-FE FUMARATE-FOLIC ACID VIT TAB PO SCH (10:19)
[2020-02-10 22:22] VITALS: BP 113/80
== END 2020-02-10 23:40 | disposition home or self-care (01) | DRG 766 ==
LOC: TRG 19:06 → LD 22:53 → TRG 02-05 00:43 → OB 02-07 18:05
PROVIDERS: ADMIT Obstetrics & Gynecology; ATTEND Obstetrics & Gynecology
PROC: 3E0P7VZ Introduction of Hormone into Female Reproductive, Via Natural or Artificial Opening (ICD-10-PCS; principal; 2020-02-05)
PROC: 10D00Z1 Extraction of Products of Conception, Low, Open Approach (ICD-10-PCS; 2020-02-07)
DX: O36.63X0 Maternal care for excessive fetal growth, third trimester, not applicable or unspecified (principal); Z20.828 Contact with and (suspected) exposure to other viral communicable diseases; O48.0 Post-term pregnancy; O99.02 Anemia complicating childbirth; O99.824 Streptococcus B carrier state complicating childbirth; O69.81X0 Labor and delivery complicated by cord around neck, without compression, not applicable or unspecified; Z3A.42 42 weeks gestation of pregnancy; Z37.0 Single live birth; D64.9 Anemia, unspecified
CPT/HCPCS: 36415; 59200; 76816; 76819; 85014; 85018; 85027; 86592; 86850; 86900; 86901; 87210; 87255; 87529; G0378; J0290; J0690; J1100; J1885; J2370; J2405; J2590; J2765; J3490; J7120; U0003